=== PATIENT | female | born 2000 | race Caucasian/White ===

== ENCOUNTER → 2018-02-23 | Outpatient (CLI) | payer BC | LOC: COL.RAD 10:37 | DX: R42 Dizziness and giddiness (principal) | CPT/HCPCS: Q9967 ==

== ENCOUNTER → 2019-09-07 | Outpatient (REF) ==
[~2019-09-07] VITALS: Ht 160 cm; Wt 65.9 kg
[~2019-09-07] MED LIST: DESYREL 50MG50 MG PO; PROZAC 10MG10 MG
== END ==
LOC: COL.ER 22:33
DX: T74.21XA Adult sexual abuse, confirmed, initial encounter (principal)

== ENCOUNTER 2020-03-09 12:48 | Observation (INO) | payer BC, OTHER ==
[2020-03-09] VITALS (8 sets, daily range): BP systolic 104–112; BP diastolic 64–73; PULSE 68–85; TEMP 97.1–98.2
[~2020-03-09] VITALS: Ht 160 cm; Wt 80.6 kg
[~2020-03-09 12:48] MED LIST changes: -PROZAC 10MG10 MG; +PROZAC 10MG10 MG PO
[2020-03-09 15:09] LABS: BASO % 0.4 % (0.0-2.0); EOS # 0.1 (0.0-0.7); EOS % 0.7 % (0-4.0); GRAN # 8.2 (1.4-6.5); GRAN % 76.6 % (42.2-75.2); HEMATOCRIT 40.4 % (37.0-47.0); HEMOGLOBIN 13.3 g/dl (12.5-16.0); LYMPH # 1.4 (1.2-3.4); LYMPH % 13.2 % (20.0-51.0); MEAN CELL VOLUME 90 fl (80.0-100.0); MEAN CORPUSCULAR HEMOGLOBIN 30 pg (27.0-31.0); MEAN CORPUSCULAR HGB CONC 33 g/dl (33.0-37.0); MEAN PLATELET VOLUME 9.9 fl (7.4-10.4); MONO # 0.9 (0.1-0.6); MONO % 8.5 % (1.7-9.3); PLATELET COUNT 247 K/mm3 (130-400); REDCELL DISTRIBUTION WIDTH-CV 13.1 % (11.5-14.5)
[2020-03-09 15:19] LABS: CALCIUM 9.5 mg/dL (8.4-10.2); CREATININE, serum 0.74 (0.52-1.25); POTASSIUM 3.9 mmol/L (3.4-5.0)
[2020-03-09] MEDS ORDERED: XANAX .25M0.25 MG/TA PO (16:19)
[2020-03-09] MEDS ORDERED: NORCO 325 MG-51 TAB PO (20:31)
== END 2020-03-09 21:10 | disposition home or self-care (01) ==
LOC: COL.RAD 12:48 → SURG 14:17 → COL.RAD 15:30 → SURG 21:10
PROVIDERS: ADMIT Surgery
DX: K35.80 Unspecified acute appendicitis (principal); F41.9 Anxiety disorder, unspecified; F32.9 Major depressive disorder, single episode, unspecified; F43.10 Post-traumatic stress disorder, unspecified
CPT/HCPCS: G0378; J1100; J1200; J2250; J2270; J2405; J2543; J2704; J3010; J7030; Q9967

== ENCOUNTER → 2020-09-13 | Outpatient (CLI) | payer BC, OTHER ==
[~2020-09-13] MED LIST changes: +NORCO 325 MG-51 TAB PO; +XANAX .25M0.25 MG/TA PO
== END ==
LOC: COL.RAD 08:04
DX: G47.10 Hypersomnia, unspecified (principal); R40.4 Transient alteration of awareness
CPT/HCPCS: A9585

== ENCOUNTER 2021-02-11 20:44 | Emergency (ER) | payer BC, OTHER ==
[~2021-02-11] VITALS: Ht 160 cm; Wt 90.9 kg
[2021-02-11 22:16] LABS: BASO % 0.3 % (0.0-2.0); EOS # 0.1 (0.0-0.7); EOS % 0.5 % (0-4.0); GRAN % 69.9 % (42.2-75.2); HEMOGLOBIN 11.9 g/dl (12.5-16.0); LYMPH # 2.5 (1.2-3.4); LYMPH % 19.5 % (20.0-51.0); MEAN CELL VOLUME 89 fl (80.0-100.0); MEAN CORPUSCULAR HEMOGLOBIN 29 pg (27.0-31.0); MEAN CORPUSCULAR HGB CONC 33 g/dl (33.0-37.0); MEAN PLATELET VOLUME 9.7 fl (7.4-10.4); MONO # 1.2 (0.1-0.6); MONO % 9.5 % (1.7-9.3); PLATELET COUNT 288 K/mm3 (130-400); RED BLOOD COUNT 4.06 M/mm3 (4.10-5.30); REDCELL DISTRIBUTION WIDTH-CV 13.4 % (11.5-14.5)
[2021-02-11 22:24] LABS: ALANINE AMINOTRANSFERASE 27 U/L (4-34); ALBUMIN 4.3 gm/dL (3.5-5.0); ALKALINE PHOSPHATASE 90 U/L (50-136); ANION GAP 8 mmol/L (7-16); AST,SGOT 22 U/L (15-37); BILIRUBIN,TOTAL < 0.1 mg/dL (0.0-1.0); BLOOD UREA NITROGEN 13 mg/dL (7-17); CALCIUM 9.1 mg/dL (8.4-10.2); CARBON DIOXIDE 23 mmol/L (22-30); CHLORIDE 106 mmol/L (98-107); CREATININE, serum 0.76 (0.52-1.25); GLUCOSE 121 mg/dL (74-106); POTASSIUM 3.7 mmol/L (3.4-5.0); SODIUM 137 mmol/L (137-145); TOTAL PROTEIN 7.7 gm/dL (6.4-8.2)
[2021-02-11 22:27] LABS: ACETAMINOPHEN < 10 ug/mL (10-30); ALCOHOL(ethanol),MEDICAL < 10 mg/dL; SALICYLATE < 1.0 mg/dL
[2021-02-11 23:39] LABS: TSH w REFLEX 4.463 uIU/mL (0.350-4.940)
[2021-02-12 00:25] LABS: TRICYCLIC ANTIDEPRESS URINE NEGATIVE
[2021-02-12 04:34] VITALS: BP 123/66; PULSE 85; TEMP 97.3
== END 2021-02-12 04:34 | disposition home or self-care (01) ==
LOC: COL.ER 20:44
PROVIDERS: Personal Emergency Response Attendant
DX: F32.9 Major depressive disorder, single episode, unspecified (principal); R45.851 Suicidal ideations; F41.9 Anxiety disorder, unspecified; G89.29 Other chronic pain; M54.9 Dorsalgia, unspecified; Z79.1 Long term (current) use of non-steroidal anti-inflammatories (NSAID); Z79.899 Other long term (current) drug therapy

== ENCOUNTER 2023-06-20 15:59 | Emergency (ER) | payer OTHER, BC ==
[~2023-06-20] VITALS: Ht 157.5 cm; Wt 102.3 kg
[2023-06-20 17:04] LABS: BASO % 0.4 % (0.0-2.0); EOS # 0.1 K/mm3 (0.0-0.7); EOS % 0.8 % (0.0-4.0); GRAN # 6.4 K/mm3 (1.4-6.5); GRAN % 65.4 % (42.2-75.2); HEMATOCRIT 37.2 % (37.0-47.0); HEMOGLOBIN 12.3 g/dl (12.5-16.0); LYMPH # 2.4 K/mm3 (1.2-3.4); LYMPH % 24.3 % (20.0-51.0); MEAN CELL VOLUME 89 fl (80.0-100.0); MEAN CORPUSCULAR HEMOGLOBIN 30 pg (27-31); MEAN CORPUSCULAR HGB CONC 33 g/dl (33.0-37.0); MONO # 0.9 K/mm3 (0.1-0.6); MONO % 8.9 % (1.7-9.3); PLATELET COUNT 306 K/mm3 (130-400); RED BLOOD COUNT 4.17 M/mm3 (4.10-5.30); REDCELL DISTRIBUTION WIDTH-CV 13.2 % (11.5-14.5)
[2023-06-20 17:21] LABS: COLLECTION METHOD CLEAN CATCH
[2023-06-20 17:23] LABS: ALBUMIN 3.7 gm/dL (3.5-5.0); BILIRUBIN,TOTAL 0.3 mg/dL (0.2-1.2); CALCIUM 9.2 mg/dL (8.4-10.2); CREATININE, serum 0.82 mg/dL (0.57-1.11); POTASSIUM 3.9 mmol/L (3.5-4.5); TOTAL PROTEIN 7.1 gm/dL (6.2-8.1)
[2023-06-20 17:31] LABS: URINE APPEARANCE Clear (CLEAR/HAZY); URINE BLOOD 2+ (NEGATIVE); URINE COLOR Yellow (YELLOW); URINE GLUCOSE Negative (NEGATIVE); URINE KETONE Negative (NEGATIVE); URINE NITRATE Negative (NEGATIVE); URINE PROTEIN(semi-quant) Negative (NEGATIVE); URINE UROBILINOGEN 0.2 E.U/dL (0.2-1.0)
[2023-06-20 17:32] LABS: SQUAMOUS EPITHELIAL 0-2 /hpf (0-10); URINE RBC 20-50 /hpf (0-2)
[2023-06-20 18:31] VITALS: BP 105/71; PULSE 66; TEMP 98.1
== END 2023-06-20 18:31 | disposition home or self-care (01) ==
LOC: COL.ER 15:59
PROVIDERS: Physician Assistant
DX: R10.2 Pelvic and perineal pain (principal); R10.31 Right lower quadrant pain; Z90.49 Acquired absence of other specified parts of digestive tract
CPT/HCPCS: J1885; J2405; J7030; Q9967

== ENCOUNTER 2023-12-26 15:09 | Emergency (ER) | payer OTHER, BC ==
[~2023-12-26] VITALS: Ht 160 cm; Wt 93.2 kg
[2023-12-26 15:15] VITALS: TEMP 97.9
[2023-12-26] MEDS ORDERED: NS 1,000 ML IV ONE (16:00)
[2023-12-26 17:30] VITALS: BP 110/69
[2023-12-26] MEDS ORDERED: Ketorolac 15 MG/ML VIAL IV ONE (17:30)
[2023-12-26 18:37] VITALS: PULSE 78
== END 2023-12-26 18:43 | disposition home or self-care (01) ==
LOC: COL.ER 15:09
DX: R06.00 Dyspnea, unspecified (principal); T39.315A Adverse effect of propionic acid derivatives, initial encounter; R51.9 Headache, unspecified
CPT/HCPCS: J1885; J7030